=== PATIENT | male | born 1960 | race Hispanic/Latino ===

== ENCOUNTER → 2017-11-09 | Outpatient (CLI) | payer OTHER ==
[~2017-11-09] MED LIST: DIATRIZOATE MEGL/DIATRIZOA SOD 30 ML BTL PO ONE; IOPAMIDOL 370 MG/ML 200 ML INFUS..BTL INJ ONE; SODIUM CHLORIDE 0.9% 50ML 50 ML ONE
--- NOTE | 2017-11-09 19:11 | Diagnostic Imaging Report ---
PROCEDURE: CT ABDOMEN AND PELVIS WITH CONTRAST TECHNIQUE: The abdomen and pelvis were scanned utilizing a multidetector helical scanner from the diaphragm to the lesser trochanter after the IV administration of 100 cc of Isovue 370 and the oral administration of Gastroview. Coronal and sagittal multiplanar reformations were obtained. DLP: 607.2 mGy-cm COMPARISON: None. INDICATIONS: NEUROENDOCRINE TUMOR OF RECTUM FINDINGS: Limited evaluation for hypervascular lesions in the absence of arterial phase. LOWER THORAX: No consolidations or pleural effusions. Few scattered pulmonary nodules (on series 2): * Right middle lobe partially visualized nodule (image 1) measures 0.4 cm * Right lower lobe subpleural nodule (image 10) measures 0.5 cm * Right lower lobe subpleural nodule (image 11) measures 0.3 cm * Left lower lobe nodule (image 16) measures 0.3 cm * Left lower lobe subpleural nodules (image 18) measure 0.4 cm and 0.3 cm HEPATOBILIARY: No focal hepatic lesions. No biliary ductal dilatation. SPLEEN: No splenomegaly. PANCREAS: No focal masses or ductal dilatation. ADRENALS: No adrenal nodules. KIDNEYS/URETERS: No hydronephrosis, stones, or solid mass lesions. PELVIC ORGANS/BLADDER: Prostate enlarged measuring approximately 4.7 x 4.8 x 5.6 cm. (65.7 cc) with slight protrusion into the bladder. No focal bladder wall thickening. PERITONEUM / RETROPERITONEUM: No free air or fluid. LYMPH NODES: No lymphadenopathy. VESSELS: Unremarkable. GI TRACT: No distention or wall thickening. The appendix is normal. Reported rectal neuroendocrine tumor is not apparent by CT. BONES AND SOFT TISSUES: Unremarkable. IMPRESSION: 1. No evidence of metastatic disease in the abdomen and pelvis. 2. Few nonspecific pulmonary nodules measure up to 0.5 cm. Dictated by: Martinez Crook M.D. on 11/09/2017 at 19:20 Electronically approved by: Martinez Crook M.D. on 11/09/2017 at 19:20
== END ==
LOC: CT 16:06
PROVIDERS: ATTEND Internal Medicine
DX: D3A.8 Other benign neuroendocrine tumors (principal); E78.5 Hyperlipidemia, unspecified
CPT/HCPCS: 74177; Q9967

== ENCOUNTER → 2019-06-22 | Outpatient (CLI) | payer OTHER ==
[~2019-06-22] MED LIST changes: -DIATRIZOATE MEGL/DIATRIZOA SOD 30 ML BTL PO ONE
--- NOTE | 2019-06-22 17:52 | Diagnostic Imaging Report ---
Exam: CT abdomen and pelvis Clinical history: Left lower quadrant pain Technique: Helical images of the abdomen and pelvis were obtained after IV contrast administration DOSE REDUCTION: The exams was performed according to the departmental dose-optimization program which includes automated exposure control, adjustment of the mA and/or kV according to patient size and/or use of iterative reconstruction technique. Findings: The lung bases are clear. There is no evidence of pleural effusion. The cardiac size is within normal limits. The liver, spleen, pancreas, gallbladder, adrenal glands, and kidneys are unremarkable. The small and large bowels are normal in caliber without evidence of obstruction. Retained feces are noted in the colon. The bladder, prostate, and seminal vesicles are unremarkable. There is no evidence of lymphadenopathy or free fluid. The aorta and IVC are normal in caliber. Impression: 1. Moderate retained feces in the colon, otherwise, unremarkable CT abdomen and pelvis. Signed by: Dr. Fidel Hutchison MD on 06/22/2019 5:49 PM
== END ==
LOC: CT 15:34
PROVIDERS: ATTEND Internal Medicine
DX: R10.32 Left lower quadrant pain (principal); R63.0 Anorexia
CPT/HCPCS: 74177; Q9967